=== PATIENT | female | born 1960 | race Asian ===

== ENCOUNTER 2023-06-12 12:22 | Day surgery (SDC) | payer OTHER ==
[2023-06-06 11:20] VITALS: BMI 24.7
[2023-06-12 13:31] VITALS: TEMP 97
[2023-06-12 13:33] VITALS: BP 118/61; PULSE 90; RESP 16
== END 2023-06-12 13:48 | disposition home or self-care (01) ==
LOC: FASU-ENDO 12:22
PROVIDERS: ATTEND Internal Medicine Gastroenterology
PROC: 0DBN8ZX Excision of Sigmoid Colon, Via Natural or Artificial Opening Endoscopic, Diagnostic (ICD-10-PCS; 2023-06-12)
PROC: 0DBP8ZX Excision of Rectum, Via Natural or Artificial Opening Endoscopic, Diagnostic (ICD-10-PCS; principal; 2023-06-12 12:55)
DX: Z12.11 Encounter for screening for malignant neoplasm of colon (principal); K63.5 Polyp of colon; K62.1 Rectal polyp; K64.1 Second degree hemorrhoids
CPT/HCPCS: 88305-TC